=== PATIENT | female | born 2000 | race Two or more races ===

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

== ENCOUNTER 2021-09-29 22:58 | Emergency (ER) | payer OTHER ==
[~2021-09-29] VITALS: Ht 160 cm; Wt 50.3 kg
[~2021-09-29 22:58] MED LIST changes: +KETO10TA2 PO
[2021-09-30] MEDS ORDERED: KETO10TA2 PO (00:36)
== END 2021-09-30 00:43 | disposition home or self-care (01) ==
LOC: ER 22:58 → EMR PED 23:27 → ER 23:27 → EMR PED 09-30 00:43
DX: R07.89 Other chest pain (principal)

== ENCOUNTER 2021-12-28 18:14 | Emergency (ER) | payer OTHER ==
[~2021-12-28] VITALS: Ht 160 cm; Wt 49.9 kg
[2021-12-28] MEDS ORDERED: BACTRIM DS TAB1 EACH PO (19:34)
== END 2021-12-28 19:49 | disposition home or self-care (01) ==
LOC: EMR PED 18:14 → ER 18:14 → EMR PED 19:10
DX: R30.0 Dysuria (principal); R10.2 Pelvic and perineal pain

== ENCOUNTER 2024-03-24 16:24 | Emergency (ER) | payer OTHER ==
[~2024-03-24] VITALS: Ht 157.5 cm; Wt 49.0 kg
[~2024-03-24 16:24] MED LIST changes: +BACTRIM DS TAB1 EACH PO
[2024-03-24 17:04] LABS: HEMATOCRIT 40.3 % (36.0-45.00); HEMOGLOBIN 13.4 g/dL (12.0-15.00); MEAN CELL VOLUME 89.7 fL (80.00-100.00); MEAN CORPUSCULAR HGB CONC 33.4 g/dl (32.0-36.0); PLATELET COUNT 254 K/uL (150-450); RED BLOOD COUNT 4.49 M/uL (4.00-6.00); RED CELL DISTRIBUTION WIDTH 14.6 % (11.5-14.5)
[2024-03-24 17:23] LABS: CALCIUM 8.6 mg/dL (8.5-10.1); CREATININE SERUM 0.84 mg/dL (0.55-1.02); GFR 84.78; POTASSIUM 3.88 mEq/L (3.5-5.1)
== END 2024-03-24 17:50 | disposition home or self-care (01) ==
LOC: ER 16:24
PROVIDERS: Emergency Medicine
DX: R42 Dizziness and giddiness (principal)

== ENCOUNTER 2025-01-25 07:24 | Emergency (ER) | payer OTHER ==
[~2025-01-25] VITALS: Ht 160 cm; Wt 53.1 kg
[2025-01-25] MEDS ORDERED: KETOROLAC TROMETHAMINE 30 MG VIAL ONE (08:59)
[2025-01-25] MEDS ORDERED: FAMOTIDINE/PF 20 MG/2 ML VIAL ONE (08:59)
[2025-01-25] MEDS ORDERED: 0.9 % SODIUM CHLORIDE 1,000 ML IV ONE (09:00)
[2025-01-25] MEDS ORDERED: KETOROLAC TROMETHAMINE 30 MG VIAL IU ONE (09:00)
[2025-01-25] MEDS ORDERED: FAMOTIDINE/PF 20 MG/2 ML VIAL IV PUSH ONE (09:00)
[2025-01-25 09:57] LABS: BASO % 0.6 % (0.1-1.2); EOS # 0.01 (0.04-0.54); EOS % 0.1 % (0.7-7.0); LYMPH # 1.29 (1.18-3.74); LYMPH % 9.7 % (19.3-53.1); MEAN PLATELET VOLUME 10.10 fl (9.4-12.4); MONO # 0.80 (0.24-0.82); MONO % 6.0 % (4.7-12.5); NEUT # 11.13 (1.56-6.13); NEUT % 83.4 % (34.0-71.1); RED CELL DISTRIBUTION WIDTH 12.9 % (11.6-14.4)
[2025-01-25 10:07] LABS: URINE APPEARANCE Clear; URINE BILIRRUBIN Negative (NEGATIVE); URINE BLOOD Small; URINE COLOR Yellow; URINE GLUCOSE Negative (NEGATIVE); URINE KETONE Negative (NEGATIVE); URINE LEUKOCYTE Small; URINE NITRATE Negative; URINE PROTEIN Negative (NEGATIVE); URINE UROBILINOGEN 1.0 E.U./dl
[2025-01-25 10:11] LABS: URINE BACTERIA 191.0 uL (0.0-1933); URINE EPITHELIAL CELLS 17.9 uL (0.0-38.8); URINE RBC 12.7 uL (0.0-20.8); URINE WBC 137.3 uL (0.0-23.2)
[2025-01-25 10:26] LABS: URINE CAST 0.56 uL (0.0-1.40)
[2025-01-25 10:30] LABS: ALT/SGPT 19.0 U/L (12-78); AST/SGOT 14.0 U/L (15-37); BILIRUBIN TOTAL 3.0 mg/dL (0.3-1.2); BILIRUBIN,CONJUGATED 0.31 mg/dL (0.0-0.2); BUN CREA RATIO 11.0 (7.0-25.0); CREATININE SERUM 0.76 mg/dL (0.55-1.02); GFR 94.31; GLUCOSE FASTING 91.0 mg/dL (65-100); HCG QUANTITATIVE 71.0 mUI/mL (1-3); OSMOLALITY SERUM 281.0 MOSM/KG (275-295)
[2025-01-25] MEDS ORDERED: CEFTRIAXONE SODIUM 2,000 MG VIAL IV ONE (11:30)
[2025-01-25] MEDS ORDERED: CEFTRIAXONE SODIUM 2,000 MG VIAL ONE (12:48)
[2025-01-25] MEDS ORDERED: AMOX-CLAV 875-1 EACH PO (17:41)
== END 2025-01-25 19:43 | disposition home or self-care (01) ==
LOC: ER 07:25
PROVIDERS: Emergency Medicine
DX: R10.84 Generalized abdominal pain (principal)